=== PATIENT | female | born 1985 | race Two or more races ===

== ENCOUNTER 2020-12-06 11:51 | Outpatient (CLI) | payer BC | END 2020-12-06 23:59 | disposition home or self-care (01) | LOC: MSC 11:51 | PROVIDERS: ATTEND Internal Medicine | DX: F41.9 Anxiety disorder, unspecified (principal); R00.2 Palpitations; R07.89 Other chest pain; G43.909 Migraine, unspecified, not intractable, without status migrainosus; M54.9 Dorsalgia, unspecified; F51.9 Sleep disorder not due to a substance or known physiological condition, unspecified ==

== ENCOUNTER 2020-12-20 11:00 | Outpatient (CLI) | payer BC | END 2020-12-20 23:59 | disposition home or self-care (01) | LOC: MSC 11:00 | PROVIDERS: ATTEND Internal Medicine | DX: E78.2 Mixed hyperlipidemia (principal); R73.03 Prediabetes; F41.9 Anxiety disorder, unspecified; G43.909 Migraine, unspecified, not intractable, without status migrainosus; M54.9 Dorsalgia, unspecified; E66.9 Obesity, unspecified ==